=== PATIENT | female | born 1980 | race Caucasian/White ===

== ENCOUNTER 2017-06-03 15:28 | Emergency (ER) | payer BC ==
[2017-06-03 16:23] VITALS: BP 130/88
--- NOTE | 2017-06-03 16:41 | UC ---
Lower Extremity/Ankle HPI - HPI Summary HPI Summary: Right toe was stubbed about a week ago. It hurt initially but then was fine to walk on. Over the last day or so it now hurts again and there is swelling. She denies fever, chills, DM. It hurts more to walk on it. - History of Current Complaint Chief Complaint: UCLowerExtremity Stated Complaint: RIGHT FOOT PAIN Time Seen by Provider: 06/03/17 16:27 Hx Obtained From: Patient Hx Last Menstrual Period: SEPTEMBER 2016, HAS PCOS, DOES NOT HAVE REG PERIODS ?: No Onset/Duration: Gradual Onset, Lasting Days Severity Initially: Mild Severity Currently: Moderate Aggravating Factor(s): Standing, Ambulation Alleviating Factor(s): Rest, Elevation Able to Bear Weight: Yes - Allergies/Home Medications Allergies/Adverse Reactions: Allergies Allergy/AdvReac Type Severity Reaction Status Date / Time Chloraseptic Allergy Rash Uncoded 06/03/17 16:16 PMH/Surg Hx/FS Hx/Imm Hx Previously Healthy: No - Obesity. - Surgical History Surgical History: Yes Surgery Procedure, Year, and Place: . Right Axilla Lumpectomy - Family History Known Family History: Positive: None, Other - NO foot related diseases. - Social History Occupation: Employed Full-time Alcohol Use: None Substance Use Type: None Smoking Status (MU): Never Smoked Tobacco - Immunization History Most Recent Influenza Vaccination: Not the Season Most Recent Tetanus Shot: Unknown Review of Systems Musculoskeletal: Arthralgia All Other Systems Reviewed And Are Negative: Yes Physical Exam Triage Information Reviewed: Yes Appearance: Well-Appearing, No Pain Distress, Obese Vital Signs: Initial Vital Signs Temp 98.4 F 06/03/17 16:17 Pulse 95 06/03/17 16:17 Resp 18 06/03/17 16:17 BP 130/88 06/03/17 16:17 Pulse Ox 100 06/03/17 16:17 Vital Signs Reviewed: Yes Eyes: Positive: Conjunctiva Clear ENT: Positive: Normal ENT inspection Neck: Positive: Supple, Nontender, No Lymphadenopathy. Negative: Nuchal Rigidity Respiratory: Positive: Lungs clear, Normal breath sounds, No respiratory distress, No accessory muscle use. Negative: Respiratory distress, Decreased breath sounds, Crackles, Rhonchi, Stridor Cardiovascular: Positive: RRR, No Murmur, Pulses Normal, Brisk Capillary Refill Abdomen Description: Negative: Distended, Guarding Musculoskeletal: Positive: Other: - right small toe swollen and tender. No streaking or involvement of the foot. there is atheletes foot between the toes. Neurological: Positive: Alert, Muscle Tone Normal. Negative: Fatigued Psychological: Positive: Age Appropriate Behavior Skin: Positive: breakdown - some skin breakdown between the toes. Lower Extremity Course/Dx - Differential Dx/Diagnosis Provider Diagnoses: right toe cellulitis. Athlete's foot. Discharge - Discharge Plan Condition: Good Disposition: HOME Prescriptions: Ciprofloxacin TAB* [Cipro 500 MG TAB*] 500 mg PO BID #20 tab Magnesium Sulfate CRYSTAL* [Epsom Salt*] 1 applic .SEE ORDER BID #20 box Tolnaftate 1% CREAM* [Tinactin 1% CREAM*] 1 applic TOPICAL BID #1 tube Patient Education Materials: Cellulitis (ED), Athlete's Foot (ED) Referrals: Paul Mendez MD [Primary Care Provider] -
== END 2017-06-03 16:52 | disposition home or self-care (01) ==
LOC: UCCORT 15:28
DX: L03.031 Cellulitis of right toe (principal); B35.3 Tinea pedis
CPT/HCPCS: 99212; G0463

== ENCOUNTER 2017-08-01 21:34 | Emergency (ER) | payer BC ==
[2017-08-01 22:18] VITALS: BP 136/75
[2017-08-01] MEDS ORDERED: Amoxicillin PO (*) 500 MG CAP PO ONE (22:38)
--- NOTE | 2017-08-01 22:45 | UC ---
Throat Pain/Nasal Anthony HPI - HPI Summary HPI Summary: 36 [address] x 2-3 days - History of Current Complaint Chief Complaint: UCRespiratory Stated Complaint: SORE THROAT Time Seen by Provider: 08/01/17 22:35 Hx Obtained From: Patient Hx Last Menstrual Period: 09/2016 Onset/Duration: Sudden Onset Severity: Mild Pain Intensity: 8 Pain Scale Used: 0-10 Numeric - Epiglottits Risk Factors Epiglottis Risk Factors: Negative - Allergies/Home Medications Allergies/Adverse Reactions: Allergies Allergy/AdvReac Type Severity Reaction Status Date / Time Chloraseptic Allergy Rash Uncoded 08/01/17 22:11 PMH/Surg Hx/FS Hx/Imm Hx Previously Healthy: Yes - Surgical History Surgical History: Yes Surgery Procedure, Year, and Place: . Right Axilla Lumpectomy - Family History Known Family History: Positive: None, Other - NO foot related diseases. - Social History Alcohol Use: None Substance Use Type: None Smoking Status (MU): Never Smoked Tobacco - Immunization History Most Recent Influenza Vaccination: Not the Most Recent Tetanus Shot: Unknown Review of Systems Constitutional: Fever, Chills Skin: Negative Eyes: Negative ENT: Sore Throat Respiratory: Negative Cardiovascular: Negative Gastrointestinal: Negative Genitourinary: Negative Motor: Negative Neurovascular: Negative Musculoskeletal: Negative Neurological: Negative Psychological: Negative Is Patient Immunocompromised?: No All Other Systems Reviewed And Are Negative: Yes Physical Exam Triage Information Reviewed: Yes Appearance: Well-Appearing, No Pain Distress, Well-Nourished Vital Signs: Initial Vital Signs Temp 100 F 08/01/17 22:13 Pulse 99 08/01/17 22:13 Resp 18 08/01/17 22:13 BP 136/75 08/01/17 22:13 Pulse Ox 100 08/01/17 22:13 Vital Signs Reviewed: Yes Eyes: Positive: Conjunctiva Clear ENT: Positive: Hearing grossly normal, Pharyngeal erythema, Tonsillar swelling, Tonsillar exudate, Uvula midline Neck: Positive: Supple, Nontender, Enlarged Nodes @ - ant cervical Respiratory: Positive: Lungs clear, Normal breath sounds Cardiovascular: Positive: RRR, No Murmur Abdomen Description: Positive: Nontender, No Organomegaly Musculoskeletal Exam: Normal Neurological: Positive: Muscle Tone Normal Psychological Exam: Normal Throat Pain/Nasal Course/Dx - Course Course Of Treatment: strep (-) - Differential Dx/Diagnosis Provider Diagnoses: strep throat Discharge - Discharge Plan Condition: Stable Disposition: HOME Prescriptions: Amoxicillin PO (*) [Amoxicillin 875 MG (*)] 875 mg PO BID #20 tab Patient Education Materials: Strep Throat (ED) Referrals: No Primary Care Phys,NOPCP [Primary Care Provider] - Additional Instructions: recheck in 3-4 days if not better
== END 2017-08-01 22:50 | disposition home or self-care (01) ==
LOC: UCCORT 21:34
DX: J02.0 Streptococcal pharyngitis (principal)
CPT/HCPCS: 87651; 99212; A9270-GY; G0463

== ENCOUNTER 2017-09-24 21:06 | Emergency (ER) | payer BC ==
--- NOTE | 2017-09-24 21:12 | UC ---
Respiratory Complaint HPI - HPI Summary HPI Summary: 36 year old with respiratory complaint. SINUS CONGESTION, EARS ARE "CLOGGED" X 3 DAYS SLIGHT SORE THROAT TODAY. no fever. has had sinus pressure. today the ears started to hurt more and came in due to ear pain. no hearing loss. no tinnitus. no ear discharge. [ End ] - History of Current Complaint Stated Complaint: CONGESTION Time Seen by Provider: 09/24/17 21:10 Hx Obtained From: Patient Hx Last Menstrual Period: 09/2016 Onset/Duration: Gradual Onset Timing: Constant Severity Initially: Mild Severity Currently: Moderate Character: Cough: Nonproductive Associated Signs And Symptoms: Positive: Sinus Discomfort - Allergies/Home Medications Allergies/Adverse Reactions: Allergies Allergy/AdvReac Type Severity Reaction Status Date / Time Chloraseptic Allergy Rash Uncoded 08/01/17 22:11 Home Medications: Home Medications guaiFENesin [Mucinex] 1,200 mg PO Q12H 09/24/17 [History Confirmed 09/24/17] PMH/Surg Hx/FS Hx/Imm Hx Previously Healthy: Yes - Surgical History Surgical History: Yes Surgery Procedure, Year, and Place: . Right Axilla Lumpectomy - Family History Known Family History: Positive: None, Other - NO foot related diseases. - Social History Occupation: Employed Full-time - teacher Alcohol Use: None Substance Use Type: None Smoking Status (MU): Never Smoked Tobacco - Immunization History Most Recent Influenza Vaccination: Not the 2013/2014 Season Most Recent Tetanus Shot: Unknown Review of Systems Constitutional: Fatigue ENT: Ear Ache, Nasal Discharge, Sinus Congestion Respiratory: Cough Is Patient Immunocompromised?: No All Other Systems Reviewed And Are Negative: Yes Physical Exam Triage Information Reviewed: Yes Appearance: Well-Appearing, No Pain Distress, Well-Nourished Vital Signs Reviewed: Yes Eye Exam: Normal ENT Exam: Normal ENT: Positive: Nasal congestion, TM bulging, TM dull - right with purulent AOM, TM red Dental Exam: Normal Neck exam: Normal Neck: Positive: 1 Respiratory Exam: Normal Cardiovascular Exam: Normal Musculoskeletal Exam: Normal Neurological Exam: Normal Psychological Exam: Normal Skin Exam: Normal Respiratory Course/Dx - Differential Dx/Diagnosis Differential Diagnosis/HQI/PQRI: Bronchitis, Lower Resp Infection, Sinusitis Provider Diagnoses: Right AOM Discharge - Sign-Out/Discharge Documenting (check all that apply): Discharge - Discharge Plan Condition: Good Disposition: HOME Prescriptions: Amoxicillin PO (*) [Amoxicillin 875 MG (*)] 875 mg PO BID 10 Days #20 tab Patient Education Materials: Ear Infection (ED) Forms: *Work Release Referrals: No Primary Care Phys,NOPCP [Primary Care Provider] - 4 Days - Billing Disposition and Condition Condition: GOOD Disposition: HOME
[2017-09-24 21:18] VITALS: BP 127/80
[2017-09-24] MEDS ORDERED: Amoxicillin PO (*) 500 MG CAP PO ONE (21:29)
== END 2017-09-24 21:42 | disposition home or self-care (01) ==
LOC: UCCORT 21:06
DX: H66.91 Otitis media, unspecified, right ear (principal); Z88.8 Allergy status to other drugs, medicaments and biological substances
CPT/HCPCS: 99212; A9270-GY; G0463